=== PATIENT | male | born 1985 | race Hispanic/Latino ===

== ENCOUNTER 2019-01-26 18:02 | Emergency (ER) | payer BC, OTHER ==
[2019-01-26] MEDS ORDERED: ONDANSETRON 4 MG/2 ML VIAL ONE (20:10)
[2019-01-26] MEDS ORDERED: NA CHLORIDE 0.9% 1,000 ML ONE (20:10)
[2019-01-26] MEDS ORDERED: FAMOTIDINE 20 MG/2 ML VIAL IV ONE (20:10)
[2019-01-26 20:19] LABS: Absolute Lymphocytes (CBC) 1.1 K/uL (0.7-4.9); Absolute Monocytes 0.4 K/uL (0.1-1.3); Absolute Neutrophil 5.8 K/uL (1.8-8.0); Basophils % 0.3 % (0-1.3); Eosinophils % 0.1 % (0-4.4); Hematocrit 40.8 % (39.6-49.0); Lymphocytes % 14.8 % (15.3-44.8); MPV 8.6 fL (7.6-11.3); RBC Red Blood Cell Count 4.37 M/uL (4.33-5.43)
[2019-01-26 20:24] LABS: ALT/SGPT 17 U/L (12-78); AST/SGOT 14 U/L (15-37); Albumin 3.5 g/dL (3.4-5.0); Alkaline Phosphatase 70 U/L (45-117); BUN Blood Urea Nitrogen 11 mg/dL (7-18); Bicarbonate 23 mmol/L (21-32); Bilirubin Direct < 0.1 mg/dL (0-0.2); Bilirubin Total 0.2 mg/dL (0.2-1.0); Glucose Level 138 mg/dL (74-106); Lipase 96 U/L (73-393); Potassium 3.2 mmol/L (3.5-5.1); Protein, Total 7.4 g/dL (6.4-8.2); Sodium Level 137 mmol/L (136-145)
[2019-01-26] MEDS ORDERED: IBUPROFEN 400 MG TAB ONE (20:33)
[2019-01-26 21:01] LABS: Urine Blood TRACE (NEG); Urine Glucose NEGATIVE (NEG); Urine Protein 1+ (NEG); Urine Specific Gravity 1.015 (1.005-1.030)
--- NOTE | 2019-01-26 21:49 | ER ---
Nurse's Notes [facility] Name: Vinod Moralez Age: 33 yrs Sex: Male : 1985 Arrival Date: 01/26/2019 Time: 18:13 Bed 30 Private MD: Diagnosis: Diarrhea, unspecified Presentation: 01/26 18:15 Presenting complaint: Patient states: Sent here by [facility] for dehydration. aa5 Pt reports flu swab at [facility] was negative. Pt reports diarrhea, chills, headache, body aches since yesterday. Denies vomiting. Reports being given Tylenol 45 minutes [employer]. Transition of care: patient was not received from another setting of care. Onset of symptoms was January 2019. Risk Assessment: Do you want to hurt yourself or someone else? Patient reports no desire to harm self or others. Care prior to arrival: see triage note. 18:15 Method Of Arrival: Ambulatory aa5 18:15 Acuity: LIVIER 3 aa5 Historical: - Allergies: 18:17 No Known Allergies; aa5 - PMHx: 18:17 None; aa5 - PSHx: 18:17 None; aa5 - Immunization history:: Flu vaccine is not up to date. - Social history:: Smoking status: Patient/guardian denies using tobacco, Patient/guardian denies using alcohol, street drugs, The patient lives with family. - Ebola Screening: : No symptoms or risks identified at this time. - Family history:: not pertinent. Screenin:24 Abuse screen: Denies threats or abuse. Nutritional screening: No deficits noted. jb4 Tuberculosis screening: No symptoms or risk factors identified. Fall Risk None identified. Assessment: 19:24 General: Appears in no apparent distress. uncomfortable, Behavior is calm, cooperative, jb4 appropriate for age. Pain: Complains of pain in epigastric area and umbilical area Pain does not radiate. Pain currently is 2 out of 10 on a pain scale. Quality of pain is described as aching. Neuro: Level of Consciousness is awake, alert, obeys commands, Oriented to person, place, time, situation. Cardiovascular: Patient's skin is warm and dry. Respiratory: Airway is patent Respiratory effort is even, unlabored, Respiratory pattern is regular, symmetrical. GI: Abdomen is flat, Bowel sounds present X 4 quads. Abd is soft and non tender X 4 quads. Abdomen is tender to palpation in epigastric area and umbilical area Reports diarrhea, nausea. : No signs and/or symptoms were reported regarding the genitourinary system. EENT: No signs and/or symptoms were reported regarding the EENT system. Derm: Skin is intact, Skin is pink, warm \T\ dry. Musculoskeletal: Circulation, motion, and sensation intact. 20:30 Reassessment: Patient appears in no apparent distress at this time. Patient and/or jb4 family updated on plan of care and expected duration. Pain level reassessed. Patient is alert, oriented x 3, equal unlabored respirations, skin warm/dry/pink. 22:01 Reassessment: Patient appears in no apparent distress at this time. Patient and/or jb4 family updated on plan of care and expected duration. Pain level reassessed. Patient is alert, oriented x 3, equal unlabored respirations, skin warm/dry/pink. Vital Signs: 18:17 BP 118 / 77; Pulse 104; Resp 16 S; Temp 101.0(TE); Pulse Ox 97% on R/A; Weight 81.65 kg aa5 (R); Pain 8/10; 19:46 BP 127 / 79; Pulse 85; Resp 16; Temp 99.3(O); Pulse Ox 99% on R/A; jb4 20:30 BP 120 / 85; Pulse 74; Resp 16; Pulse Ox 100% on R/A; jb4 21:00 BP 112 / 79; Pulse 69; Resp 16; Temp 98.8(O); Pulse Ox 99% on R/A; jb4 21:45 BP 111 / 78; Pulse 71; Resp 16; Pulse Ox 98% on R/A; jb4 ED Course: 18:13 Patient arrived in ED. mr 18:15 Arm band placed on. aa5 18:17 Triage completed. aa5 19:07 Ivanna Martinez MD is Attending Physician. ma2 19:12 Dmitri Ma, KIKE is Primary Nurse. jb4 19:24 Patient has correct armband on for positive identification. Bed in low position. Call jb4 light in reach. Side rails up X 1. Pulse ox on. NIBP on. 19:24 Initial lab(s) drawn, by me, sent to lab. Inserted saline lock: 20 gauge in right jb4 antecubital area, using aseptic technique. Blood collected. 22:03 No provider procedures requiring assistance completed. IV discontinued, intact, jb4 bleeding controlled, No redness/swelling at site. Administered Medications: 20:04 Drug: Pepcid 20 mg Route: IVP; Site: right antecubital; jb4 22:04 Follow up: Response: No adverse reaction jb4 20:05 Drug: NS 0.9% 1000 ml Route: IV; Rate: 1 bolus; Site: right antecubital; jb4 21:00 Follow up: Response: No adverse reaction; IV Status: Completed infusion; IV Intake: jb4 1000ml 20:06 Drug: Zofran 4 mg Route: IVP; Site: right antecubital; jb4 22:04 Follow up: Response: No adverse reaction; Nausea is decreased jb4 20:19 Not Given (Other Intervention Used): Acetaminophen 1000 mg PO once jb4 20:30 Drug: Motrin 800 mg Route: PO; jb4 22:05 Follow up: Response: No adverse reaction; Temperature is decreased jb4 Intake: 21:00 IV: 1000ml; Total: 1000ml. jb4 Outcome: 21:48 Discharge ordered by . [email or web address] 22:03 Discharged to home ambulatory. jb4 22:03 Condition: stable 22:03 Discharge instructions given to patient, Instructed on discharge instructions, follow up and referral plans. medication usage, Demonstrated understanding of instructions, follow-up care, medications, Prescriptions given X 1. 22:05 Patient left the ED. jb4 Signatures: Fay Denise KrugerYen vincent RN RN aa5 Dmitri Ma RN RN jb4 Ivanna Martinez MD MD ma2
--- NOTE | 2019-01-26 21:49 | EDPHYS ---
Physician Documentation [facility] Name: Vinod Moralez Age: 33 yrs Sex: Male : 1985 Arrival Date: 01/26/2019 Time: 18:13 Bed 30 Private MD: ED Physician Ivanna Martinez HPI: 01/26 19:29 This 33 yrs old Male presents to ER via Ambulatory with complaints of Fever, ma2 Diarrhea, Nausea. 19:29 The patient reports fever, that was measured at 103 degrees Fahrenheit. Onset: The ma2 symptoms/episode began/occurred gradually, 2 day(s) ago. Associated signs and symptoms: Pertinent positives: Pertinent negatives: abdominal pain, altered mental status, backache. Associated signs and symptoms: Pertinent positives: diarrhea, Pertinent negatives: headache, nausea, night sweats, sinus congestion, sinus drainage, shortness of breath, sore throat, swelling, vomiting. Severity of symptoms: At their worst the symptoms were mild in the emergency department the symptoms are unchanged. The patient has not experienced similar symptoms in the past. Historical: - Allergies: 18:17 No Known Allergies; aa5 - PMHx: 18:17 None; aa5 - PSHx: 18:17 None; aa5 - Immunization history:: Flu vaccine is not up to date. - Social history:: Smoking status: Patient/guardian denies using tobacco, Patient/guardian denies using alcohol, street drugs, The patient lives with family. - Ebola Screening: : No symptoms or risks identified at this time. - Family history:: not pertinent. ROS: 19:29 Eyes: Negative for injury, pain, redness, and discharge, Cardiovascular: Negative for ma2 chest pain, palpitations, and edema, Respiratory: Negative for shortness of breath, cough, wheezing, and pleuritic chest pain. 19:29 Constitutional: Positive for fever, Negative for body aches, chills, fatigue, malaise, weight loss. 19:29 Abdomen/GI: Positive for diarrhea, Negative for abdominal pain, nausea and vomiting, nausea, vomiting, black/tarry stool, rectal pain, bowel incontinence, acute changes. 19:29 All other systems are negative. Exam: 19:29 Head/Face: Normocephalic, atraumatic. Neck: Trachea midline, no thyromegaly or masses ma2 palpated, and no cervical lymphadenopathy. Supple, full range of motion without nuchal rigidity, or vertebral point tenderness. No Meningismus. Chest/axilla: Normal chest wall appearance and motion. Nontender with no deformity. No lesions are appreciated. Cardiovascular: Regular rate and rhythm with a normal S1 and S2. No gallops, murmurs, or rubs. Normal PMI, no JVD. No pulse deficits. Respiratory: Lungs have equal breath sounds bilaterally, clear to auscultation and percussion. No rales, rhonchi or wheezes noted. No increased work of breathing, no retractions or nasal flaring. Abdomen/GI: Soft, non-tender, with normal bowel sounds. No distension or tympany. No guarding or rebound. No evidence of tenderness throughout. MS/ Extremity: Pulses equal, no cyanosis. Neurovascular intact. Full, normal range of motion. Neuro: Awake and alert, GCS 15, oriented to person, place, time, and situation. Cranial nerves II-XII grossly intact. Motor strength 5/5 in all extremities. Sensory grossly intact. Cerebellar exam normal. Normal gait. Vital Signs: 18:17 BP 118 / 77; Pulse 104; Resp 16 S; Temp 101.0(TE); Pulse Ox 97% on R/A; Weight 81.65 kg aa5 (R); Pain 8/10; 19:46 BP 127 / 79; Pulse 85; Resp 16; Temp 99.3(O); Pulse Ox 99% on R/A; jb4 20:30 BP 120 / 85; Pulse 74; Resp 16; Pulse Ox 100% on R/A; jb4 21:00 BP 112 / 79; Pulse 69; Resp 16; Temp 98.8(O); Pulse Ox 99% on R/A; jb4 21:45 BP 111 / 78; Pulse 71; Resp 16; Pulse Ox 98% on R/A; jb4 MDM: 19:07 Patient medically screened. [facility] 19:29 Differential diagnosis: URI, UTI, gastroenteritis, had negative flue test done today at [facility] pcp. 21:45 Data reviewed: vital signs, nurses notes. Counseling: I had a detailed discussion with [facility] the patient and/or guardian regarding: the historical points, exam findings, and any diagnostic results supporting the discharge/admit diagnosis, the presence of at least one elevated blood pressure reading (>120/80) during this emergency department visit, the need for outpatient follow up. Response to treatment: the patient's symptoms have resolved after treatment. 01/26 19:09 Order name: Basic Metabolic Panel; Complete Time: 20:41 ma2 01/26 19:09 Order name: CBC with Diff; Complete Time: 20:41 ma2 01/26 19:09 Order name: Creatinine for Radiology; Complete Time: 20:41 ma2 01/26 19:09 Order name: Hepatic Function; Complete Time: 20:41 ma2 01/26 19:09 Order name: Lipase; Complete Time: 20:41 ma2 01/26 19:09 Order name: IV Saline Lock; Complete Time: 20:00 ma2 01/26 19:09 Order name: Labs collected and sent; Complete Time: 20:00 ma2 01/26 20:23 Order name: Urine Dipstick--Ancillary (enter results) cm6 01/26 19:09 Order name: Urine Dipstick-Ancillary (obtain specimen); Complete Time: 20:13 ma2 Administered Medications: 20:04 Drug: Pepcid 20 mg Route: IVP; Site: right antecubital; jb4 22:04 Follow up: Response: No adverse reaction jb4 20:05 Drug: NS 0.9% 1000 ml Route: IV; Rate: 1 bolus; Site: right antecubital; jb4 21:00 Follow up: Response: No adverse reaction; IV Status: Completed infusion; IV Intake: jb4 1000ml 20:06 Drug: Zofran 4 mg Route: IVP; Site: right antecubital; jb4 22:04 Follow up: Response: No adverse reaction; Nausea is decreased jb4 20:19 Not Given (Other Intervention Used): Acetaminophen 1000 mg PO once jb4 20:30 Drug: Motrin 800 mg Route: PO; jb4 22:05 Follow up: Response: No adverse reaction; Temperature is decreased jb4 Disposition: 01/26/19 21:48 Discharged to Home. Impression: Diarrhea, unspecified. - Condition is Stable. - Discharge Instructions: Food Choices to Help Relieve Diarrhea, Adult. - Prescriptions for Tylenol- Codeine #3 300-30 mg Oral Tablet - take 2 tablet by ORAL route every 6 hours As needed; 30 tablet. - Medication Reconciliation Form, Thank You Letter, Antibiotic Education, Prescription Opioid Use form. - Follow up: Private Physician; When: Tomorrow; Reason: Continuance of care. Signatures: Dispatcher [employer] [facility] Yen Kruger, RN RN aa5 Dmitri Ma RN RN jb4 Ivanna Martinez MD MD ma2 Corrections: (The following items were deleted from the chart) 20:08 19:09 TEST, [id number]+[id number] ordered. [facility] 22:05 21:48 01/26/2019 21:48 Discharged to Home. Impression: Diarrhea, unspecified. Condition jb4 is Stable. Forms are Medication Reconciliation Form, Thank You Letter, Antibiotic Education, Prescription Opioid Use. Follow up: Private Physician; When: Tomorrow; Reason: Continuance of care. ma2
== END 2019-01-26 22:05 | disposition home or self-care (01) ==
LOC: ER 18:02
DX: R19.7 Diarrhea, unspecified (principal)
CPT/HCPCS: 36415; 80048; 80076; 81003; 83690; 85025; 96361; 96374; 96375; 99284; J2405; J7030